=== PATIENT | male | born 1975 | race Caucasian/White ===

== ENCOUNTER 2019-10-26 07:07 | Emergency (ER) | payer OTHER ==
[2019-10-26 07:14] VITALS: TEMP 97.9
[2019-10-26] MEDS ORDERED: SODIUM CHLORIDE 0.9% 1,000 ML IV STA ×2 (07:21)
[2019-10-26] MEDS ORDERED: ONDANSETRON 4 MG/2 ML VIAL IVP STA (07:21)
[2019-10-26] MEDS ORDERED: MORPHINE SULFATE 4 MG/ML SYRINGE IV STA (07:21)
[2019-10-26] MEDS ORDERED: KETOROLAC 30 MG/ML 1 ML VIAL IVP STA (07:21)
--- NOTE | 2019-10-26 07:25 | ED ---
Male Urogenital HPI - General Chief complaint: Urogenital Stated complaint: Possible kidney stone Time Seen by Provider: 10/26/19 07:17 Source: patient, RN notes reviewed, old records reviewed Mode of arrival: ambulatory Limitations: no limitations - History of Present Illness Initial comments: Patient is a 44-year-old female presents emergency department today for evaluation with onset of left-sided flank pain starting at 4:30 this morning and awoke the Patient. Patient states that he has some radiation towards the front of his abdomen. No history of kidney stones in the past. He states that he is somewhat feels nauseated but no vomiting. Patient reports that he was fasting throughout the night because he had a scheduled blood work for his primary care doctor today. Patient states that he has had no changes in stools and denies dysuria. Patient reports no chest pain or shortness of breath. - Related Data Previous Rx's Medication Instructions Recorded Acetaminophen-Codeine 300-30mg 1 tab PO Q4H PRN 3 Days #18 tablet 10/26/19 [Tylenol w/codeine #3] Ketorolac [Toradol] 10 mg PO Q6HR #12 tab 10/26/19 Ondansetron Odt [Zofran Odt] 4 mg PO Q8HR PRN #12 tab 10/26/19 Tamsulosin [Flomax] 0.4 mg PO DAILY #10 cap 10/26/19 Allergies Allergy/AdvReac Type Severity Reaction Status Date / Time Penicillins AdvReac Rash/Hives Verified 10/26/19 07:14 Review of Systems ROS Statement: Those systems with pertinent positive or pertinent negative responses have been documented in the HPI. ROS Other: All systems not noted in ROS Statement are negative. Past Medical History Past Medical History: No Reported History History of Any Multi-Drug Resistant Organisms: None Reported Past Surgical History: Orthopedic Surgery Past Psychological History: No Psychological Hx Reported Smoking Status: Current every day smoker Past Alcohol Use History: None Reported Past Drug Use History: None Reported General Exam - General Exam Comments Initial Comments: 44-year-old female. Alert and oriented. No distress. Limitations: no limitations General appearance: alert, in no apparent distress Head exam: Present: atraumatic, normocephalic, normal inspection Eye exam: Present: normal appearance, PERRL, EOMI. Absent: scleral icterus, con junctival injection, periorbital swelling ENT exam: Present: normal exam, mucous membranes moist Neck exam: Present: normal inspection. Absent: tenderness, meningismus, lymphadenopathy Respiratory exam: Present: normal lung sounds bilaterally. Absent: respiratory distress, wheezes, rales, rhonchi, stridor Cardiovascular Exam: Present: regular rate, normal rhythm, normal heart sounds. Absent: systolic murmur, diastolic murmur, rubs, gallop, clicks GI/Abdominal exam: Present: soft, tenderness (Patient has a left lower abdominal tenderness and left CVA tenderness.), normal bowel sounds. Absent: distended, guarding, rebound, rigid Extremities exam: Present: normal inspection, full ROM, normal capillary refill. Absent: tenderness, pedal edema, joint swelling, calf tenderness Back exam: Present: normal inspection Neurological exam: Present: alert, oriented X3, CN II-XII intact Psychiatric exam: Present: normal affect, normal mood Skin exam: Present: warm, dry, intact, normal color. Absent: rash Course Vital Signs 10/26/19 10/26/19 10/26/19 07:12 07:14 07:54 Temperature 97.9 F Pulse Rate 58 L Respiratory 18 20 Rate Blood Pressure 160/92 O2 Sat by Pulse 99 97 Oximetry 10/26/19 10/26/19 10/26/19 08:00 08:14 09:29 Temperature Pulse Rate Respiratory 20 20 Rate Blood Pressure 145/86 145/86 114/76 O2 Sat by Pulse 98 98 Oximetry Medical Decision Making - Medical Decision Making This is a 44-year-old little who presents emergency department today for evaluation with concern for left flank pain onset 4:30 this morning. Patient's presentation consistent with kidney stone radiating from the back. Blood work was reviewed and unremarkable. UA showed trace hematuria. CT and also a cutter shows a 0.37 m on the left UVJ. Patient is reevaluated and resting A bed. D iscussed discharging the Patient reports of anticipatory pain medication nausea medicine. Given Flomax. - Lab Data Result diagrams: 10/26/19 07:35 10/26/19 07:35 Lab Results 10/26/19 10/26/19 10/26/19 Range/Units 07:35 07:35 07:35 WBC 6.9 (3.8-10.6) k/uL RBC 5.08 (4.30-5.90) m/uL Hgb 15.6 (13.0-17.5) gm/dL Hct 46.8 (39.0-53.0) % MCV 92.1 (80.0-100.0) fL MCH 30.8 (25.0-35.0) pg MCHC 33.4 (31.0-37.0) g/dL RDW 12.9 (11.5-15.5) % Plt Count 352 (150-450) k/uL Neutrophils % 52 % Lymphocytes % 32 % Monocytes % 6 % Eosinophils % 7 % Basophils % 1 % Neutrophils # 3.6 (1.3-7.7) k/uL Lymphocytes # 2.2 (1.0-4.8) k/uL Monocytes # 0.4 (0-1.0) k/uL Eosinophils # 0.5 (0-0.7) k/uL Basophils # 0.0 (0-0.2) k/uL Sodium 141 (137-145) mmol/L Potassium 3.9 (3.5-5.1) mmol/L Chloride 105 (98-107) mmol/L Carbon Dioxide 27 (22-30) mmol/L Anion Gap 9 mmol/L BUN 12 (9-20) mg/dL Creatinine 0.94 (0.66-1.25) mg/dL Est GFR (CKD-EPI)AfAm >90 (>60 ml/min/1.73 sqM) Est GFR (CKD-EPI)NonAf >90 (>60 ml/min/1.73 sqM) Glucose 128 H (74-99) mg/dL Calcium 9.3 (8.4-10.2) mg/dL Total Bilirubin 1.0 (0.2-1.3) mg/dL AST 68 H (17-59) U/L ALT 40 (4-49) U/L Alkaline Phosphatase 54 (38-126) U/L Total Protein 8.4 H (6.3-8.2) g/dL Albumin 4.9 (3.5-5.0) g/dL Amylase 66 (30-110) U/L Urine Color Yellow Urine Appearance Clear (Clear) Urine pH 5.5 (5.0-8.0) Ur Specific [place] 1.022 (1.001-1.035) Urine Protein Trace H (Negative) Urine Glucose (UA) Negative (Negative) Urine Ketones Negative (Negative) Urine Blood Small H (Negative) Urine Nitrite Negative (Negative) Urine Bilirubin Negative (Negative) Urine Urobilinogen <2.0 (<2.0) mg/dL Ur Leukocyte Esterase Negative (Negative) Urine RBC 1 (0-5) /hpf Urine WBC <1 (0-5) /hpf Hyaline Casts 4 H (0-2) /lpf Urine Mucus Few H (None) /hpf - Radiology Data Radiology results: report reviewed CT shows evidence of a 0.3 cm distal neurovascular stone with mild left hydroureter and hydronephrosis. Disposition Clinical Impression: Left ureteral stone Disposition: HOME SELF-CARE Condition: Good Instructions (If sedation given, give patient instructions): Kidney Stones (ED) Additional Instructions: Patient is to follow-up with primary care doctor and urology. Take medications as prescribed. Return to the ED if any alarming signs or symptoms occur. Prescriptions: Tamsulosin [Flomax] 0.4 mg PO DAILY #10 cap Ketorolac [Toradol] 10 mg PO Q6HR #12 tab Acetaminophen-Codeine 300-30mg [Tylenol w/codeine #3] 1 tab PO Q4H PRN 3 Days #18 tablet PRN Reason: Pain Ondansetron Odt [Zofran Odt] 4 mg PO Q8HR PRN #12 tab PRN Reason: Nausea Is patient prescribed a controlled substance at d/c from ED?: Yes If prescribed controlled substance>3 days was MAPS reviewed?: Prescribed <3 Days If opioid is for acute pain is fill amount 7 days or less?: Yes If Rx opioid, was Start Talking consent form obtained?: Yes Referrals: Junito Tran DO [Primary Care Provider] - 1-2 days Time of Disposition: 10:00
[2019-10-26 08:01] LABS: ALT 40 U/L (4-49); AST 68 U/L (17-59); African American GFR (CKD) >90 (>60 ml/min/1.73 sqM); Albumin 4.9 g/dL (3.5-5.0); Alkaline Phosphatase 54 U/L (38-126); Amylase 66 U/L (30-110); Anion Gap 9 mmol/L; Blood Urea Nitrogen 12 mg/dL (9-20); Calcium 9.3 mg/dL (8.4-10.2); Carbon Dioxide 27 mmol/L (22-30); Chloride 105 mmol/L (98-107); Glucose 128 mg/dL (74-99); Non-African American GFR(CKD) >90 (>60 ml/min/1.73 sqM); Potassium 3.9 mmol/L (3.5-5.1); Sodium 141 mmol/L (137-145); Total Protein 8.4 g/dL (6.3-8.2)
--- NOTE | 2019-10-26 08:15 | XR ---
EXAMINATION TYPE: XR KUB portable DATE OF EXAM: 10/26/2019 8:07 AM CLINICAL HISTORY: Left flank pain. TECHNIQUE: Two Upright KUB images of the abdomen are obtained. COMPARISON: None. FINDINGS: Scattered gas is seen in non-distended small bowel loops. Gas and fecal material is seen in non-distended colon. There is no visceromegaly, pneumoperitoneum, or abnormal calcification apprecia simone. The lung bases are clear and the osseous structures are intact. IMPRESSION: Overall nonobstructive bowel gas pattern. No definitive nephrolithiasis.
[2019-10-26 08:18] LABS: Basophils % (A) 1 %; Eosinophils # (A) 0.5 k/uL (0-0.7); Eosinophils % (A) 7 %; HCT 46.8 % (39.0-53.0); HGB 15.6 gm/dL (13.0-17.5); Lymphocytes # (A) 2.2 k/uL (1.0-4.8); Lymphocytes % (A) 32 %; MCH 30.8 pg (25.0-35.0); MCHC 33.4 g/dL (31.0-37.0); MCV 92.1 fL (80.0-100.0); Mean Platelet Volume 7.3; Monocytes # (A) 0.4 k/uL (0-1.0); Monocytes % (A) 6 %; Neutrophils # (A) 3.6 k/uL (1.3-7.7); Neutrophils % (A) 52 %; Platelet Count 352 k/uL (150-450); RBC 5.08 m/uL (4.30-5.90); RDW 12.9 % (11.5-15.5); WBC 6.9 k/uL (3.8-10.6)
[2019-10-26 08:28] LABS: Appearance,Urine Clear (Clear); Bilirubin,Urine Negative (Negative); Blood,Urine Small (Negative); Color,Urine Yellow; Glucose,Urine (UA) Negative (Negative); Hyaline Casts,Urine 4 /lpf (0-2); Ketones,Urine Negative (Negative); Leukocyte Esterase,Urine Negative (Negative); Mucus,Urine Few /hpf; Nitrite,Urine Negative (Negative); PH, Urine 5.5 (5.0-8.0); Protein,Urine Trace (Negative); RBC,Urine 1 /hpf (0-5); Specific Gravity,Urine 1.022 (1.001-1.035); Urobilinogen,Urine <2.0 mg/dL (<2.0); WBC,Urine <1 /hpf (0-5)
[2019-10-26 08:54] VITALS: RESP 20
--- NOTE | 2019-10-26 09:37 | CT ---
EXAMINATION TYPE: CT abdomen pelvis wo con DATE OF EXAM: 10/26/2019 COMPARISON: None INDICATION: Lt flank pain, microscopic hematuria DLP: 520.8 mGycm, Automated exposure control for dose reduction was used. CONTRAST: 0 mL of Isovue 300. Study performed without Oral Contrast TECHNIQUE: Axial images were obtained from above the diaphragm to the pubic rami in the axial plane a t 5 mm thick sections. Reconstructed images are reviewed on the computer in the coronal plane. FINDINGS: Limited CT sections are obtained the lung bases. The lung bases are clear. Small hiatal hernia is p resent. CT ABDOMEN: Liver: Normal Spleen: Normal Pancreas: Normal Adrenal glands: The adrenal glands are normal. Gallbladder: Normal Kidneys: No masses are evident. No hydronephrosis is present. No cysts are present. There is a 0.3 cm calcification at the left ureterovesical junction. Very minimal left hydroureter may be present. Correlate with patient's clinical symptoms. Aorta: Vascular calcification is within the aorta. Inferior vena cava: Normal. CT PELVIS: Loops of bowel within the abdomen and pelvis are normal. Loops of bowel are without oral contrast limiting bowel evaluation. Couple of diverticuli are within the sigmoid colon Appendix: Normal as visualized. Urinary bladder: Decompressed with limited evaluation. No bladder stones are evident. Genitourinary structures: Prostate has slight prominence with calcification present. Osseous structures: No suspicious lytic or sclerotic lesions. IMPRESSIONS: 1. 0.3 cm distal left ureteral vesicle junction stone with minimal left hydroureter without hydronep hrosis. 2. Small hiatal hernia.
[2019-10-26] MEDS ORDERED: TAMSULOSIN 0.4 MG CAP.ER.24H PO STA (09:57)
[2019-10-26] MEDS ORDERED: MORPHINE SULFATE 2 MG/ML SYRINGE IVP STA (09:57)
[2019-10-26 10:16] VITALS: BP 133/92; PULSE 75
== END 2019-10-26 10:21 | disposition home or self-care (01) ==
LOC: EC 07:07
DX: N20.1 Calculus of ureter (principal); F17.200 Nicotine dependence, unspecified, uncomplicated; Z88.0 Allergy status to penicillin
CPT/HCPCS: 36415; 80053; 82150; 85025; 81001; 74018; 74176; 99285; 96374; 96375 ×2; 96376; 96361 ×3; J2270 ×2; J2405; J1885